=== PATIENT | male | born 1960 | race Caucasian/White ===

== ENCOUNTER 2018-01-23 19:28 | Emergency (ER) | payer SELFPAY ==
[~2018-01-23] VITALS: Ht 177.8 cm; Wt 74.8 kg
[2018-01-23 19:46] VITALS: Ht 177.8 cm; Wt 74.8 kg
[2018-01-23 21:11] VITALS: BP 126/79
== END 2018-01-23 21:11 | disposition home or self-care (01) ==
LOC: ED 19:28
DX: S16.1XXA Strain of muscle, fascia and tendon at neck level, initial encounter (principal); V49.9XXA Car occupant (driver) (passenger) injured in unspecified traffic accident, initial encounter; Y93.I9 Activity, other involving external motion; Y92.488 Other paved roadways as the place of occurrence of the external cause; Y99.8 Other external cause status